=== PATIENT | female | born 2000 | race Caucasian/White ===

== ENCOUNTER 2021-02-17 13:53 | Emergency (ER) | payer OTHER, SELFPAY ==
--- NOTE | 2021-02-17 14:03 | ED.GENADULT ---
HPI - General Adult General Chief complaint: Dizziness Stated complaint: Light Headed Time Seen by Provider: 02/17/21 14:03 Source: patient and RN notes reviewed History of Present Illness HPI narrative: Patient is a 21-year-old female who presents the urgent care with complaints of intermittent dizziness/lightheadedness. Patient states that started approximately 1 week ago. She does follow-up with her PCP regularly due to being on Lexapro. Patient states she has had a lot of increase in stress and has had a very busy week with the next 2 weeks being very busy as well. 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 Denies of any upper respiratory complaints. Denies of any recent headaches. Denies of any vision changes. Currently denies of any dizziness or lightheadedness. Denies of any recent illness. Denies of any changes in medication, diet or exercise. No other acute complaints. No acute distress noted. Patient read plan of care. Some parts of this dictation were generated by voice recognition software and may contain typographical and/or grammatical inaccuracies. Related Data Home Medications Medication Instructions Recorded Confirmed escitalopram oxalate [Lexapro] 10 mg PO DAILY 02/17/21 02/17/21 Allergies Allergy/AdvReac Type Severity Reaction Status Date / Time No Known Allergies Allergy Verified 02/17/21 14:25 Review of Systems Review of Systems: CONSTITUTIONAL: Denies fever, chills, or sweats. EYES: Denies visual changes, redness, or discharge. ENT: Denies rhinorrhea, congestion, sore throat, or otalgia. CARDIOVASCULAR: Denies chest pain, palpitations, or edema. RESPIRATORY: Denies cough or dyspnea. GASTROINTESTINAL: Denies abdominal pain, nausea, vomiting, or diarrhea. GENITOURINARY: Denies dysuria or hematuria. SKIN: Denies rash or itching. MUSCULOSKELETAL: Denies back pain, joint pain, or myalgia. NEUROLOGIC: Reports of intermittent dizziness All other systems reviewed are negative, except as documented in HPI. PMFSH Comments At the time of my signature, I reviewed and agree with the nursing past medical, surgical, social, and family history. There is no relevant family history pertinent to the patient complaint. Exam Narrative: GENERAL: This is a well-nourished, well-developed patient, in no apparent distress. HEAD: normocephalic, atraumatic. EYES: PERRL. Sclera clear/white. Vision is grossly intact. EARS: External ears normal, auditory canals clear and without drainage, TMs normal without perforation. Hearing grossly intact. NOSE: External nose normal with no obvious nasal discharge, nares without redness, no rhinorrhea. THROAT: Mucous membranes moist, posterior pharynx clear. NECK: Neck supple CARDIOVASCULAR: Regular rate and rhythm without murmurs, gallops, or rubs. RESPIRATORY: Clear to auscultation. Breath sounds equal bilaterally. No wheezes, rales, or rhonchi. SKIN: warm, intact with no suspicious lesions or rash, good texture and turgor. NEURO: awake, alert, and oriented to person, place and time. There were no obvious focal neurologic abnormalities. No neuro deficits. EXTREMITIES: No clubbing, cyanosis, or edema. Course Vital Signs Vital signs: Vital Signs Temperature 97.8 F 02/17/21 14:05 Pulse Rate 78 02/17/21 14:05 Respiratory Rate 18 02/17/21 14:05 Blood Pressure 120/68 02/17/21 14:05 Pulse Oximetry 99 02/17/21 14:05 Temperature 97.8 F 02/17/21 14:05 Pulse Rate 78 02/17/21 14:05 Respiratory Rate 18 02/17/21 14:05 Blood Pressure 120/68 02/17/21 14:05 Pulse Oximetry 99 02/17/21 14:05 Some parts of this dictation were generated by voice recognition software and may contain typographical and/or grammatical inaccuracies. Medical Decision Making MDM Narrative Medical decision making narrative: Reviewed lab results with the patient. She is aware that urine analysis was not indicative of a urinary tract infection. Blood sugar level is within normal limi
[2021-02-17 14:05] VITALS: BP 120/68; PULSE 78; RESP 18; TEMP 36.6; O2SAT 99
[2021-02-17 14:26] LABS: Glucose Point of Care 166 mg/dl (65-105)
[2021-02-17 14:50] VITALS: BP 114/69; BP 116/63; PULSE 61; PULSE 74
[2021-02-17 14:55] VITALS: BP 92/60; PULSE 90
== END 2021-02-17 14:45 | disposition home or self-care (01) ==
PROVIDERS: Emergency Provider Nurse Practitioner Family
DX: R42 Dizziness and giddiness (principal); F41.9 Anxiety disorder, unspecified; F32.9 Major depressive disorder, single episode, unspecified
CPT/HCPCS: 81003; 82948; 99213; G0463

== ENCOUNTER 2021-07-02 11:19 | Emergency (ER) | payer OTHER, SELFPAY ==
[2021-07-02 11:25] VITALS: BP 111/63; PULSE 100; RESP 18; TEMP 37; O2SAT 99
--- NOTE | 2021-07-02 11:31 | ED.URI ---
HPI - URI/Sore Throat General Chief Complaint: Upper Respiratory Infection Stated Complaint: sore throat cough Time Seen by Provider: 07/02/21 11:31 Source: patient and RN notes reviewed History of Present Illness HPI Narrative: Patient is a 21-year-old female who presents the urgent care with complaints of cough and sore throat. Patient states that it started 2 weeks ago and she has been taking DayQuil, NyQuil and using cough drops. Denies any fever, nausea or vomiting. Denies any recent COVID exposures. Patient has been COVID vaccinated. No other acute complaints. No acute distress noted. Patient read the plan of care. Some parts of this dictation were generated by voice recognition software and may contain typographical and/or grammatical inaccuracies. Related Data Home Medications Medication Instructions Recorded Confirmed escitalopram oxalate 20 mg PO DAILY 07/02/21 07/02/21 medroxyprogesterone See Rx Instructions .ROUTE .COMPLEX 07/02/21 07/02/21 methylphenidate HCl 10 mg PO BID 07/02/21 07/02/21 Allergies Allergy/AdvReac Type Severity Reaction Status Date / Time No Known Allergies Allergy Verified 07/02/21 11:34 Review of Systems Review of Systems: CONSTITUTIONAL: Denies fever, chills, or sweats. EYES: Denies visual changes, redness, or discharge. ENT: Reports of sore throat CARDIOVASCULAR: Denies chest pain, palpitations, or edema. RESPIRATORY: Reports of nonproductive cough without dyspnea GASTROINTESTINAL: Denies abdominal pain, nausea, vomiting, or diarrhea. GENITOURINARY: Denies dysuria or hematuria. SKIN: Denies rash or itching. MUSCULOSKELETAL: Denies back pain, joint pain, or myalgia. NEUROLOGIC: Denies headache, numbness, or weakness. All other systems reviewed are negative, except as documented in HPI. PMFSH Comments At the time of my signature, I reviewed and agree with the nursing past medical, surgical, social, and family history. There is no relevant family history pertinent to the patient complaint. Exam Narrative: GENERAL: This is a well-nourished, well-developed patient, in no apparent distress. HEAD: normocephalic, atraumatic. EYES: PERRL. Sclera clear/white. Vision is grossly intact. EARS: External ears normal, auditory canals clear and without drainage, TMs normal without perforation. Hearing grossly intact. NOSE: External nose normal with no obvious nasal discharge, nares without redness, clear to yellow rhinorrhea. THROAT: Mucous membranes moist. Mild erythema noted posterior pharynx with moderate postnasal drainage NECK: Neck supple, non-tender without lymphadenopathy, masses or thyromegaly. CARDIOVASCULAR: Regular rate and rhythm without murmurs, gallops, or rubs. RESPIRATORY: Clear to auscultation. Breath sounds equal bilaterally. No wheezes, rales, or rhonchi. SKIN: warm, intact with no suspicious lesions or rash, good texture and turgor. NEURO: awake, alert, and oriented to person, place and time. There were no obvious focal neurologic abnormalities. EXTREMITIES: No clubbing, cyanosis, or edema. Course Course Level of Care: Express Care Visit Vital Signs Vital signs: Vital Signs Temperature 98.6 F 07/02/21 11:25 Pulse Rate 100 07/02/21 11:25 Respiratory Rate 18 07/02/21 11:25 Blood Pressure 111/63 07/02/21 11:25 Pulse Oximetry 99 07/02/21 11:25 Temperature 98.6 F 07/02/21 11:25 Pulse Rate 100 07/02/21 11:25 Respiratory Rate 18 07/02/21 11:25 Blood Pressure 111/63 07/02/21 11:25 Pulse Oximetry 99 07/02/21 11:25 Reviewed MDM - URI/Sore Throat MDM Narrative Medical decision making narrative: We will send a strep culture out and call you if an antibiotic is necessary. Culture takes approximately 72 hours. If you not hear back from the facility you may call the number In your paperwork to check on your culture results. Use Benadryl and Flonase prior to bedtime and complete oral steroid regimen as prescribed. May use Tylenol/ibuprofen
== END 2021-07-02 11:45 | disposition home or self-care (01) ==
PROVIDERS: Emergency Provider Nurse Practitioner Family
DX: J02.9 Acute pharyngitis, unspecified (principal); F90.9 Attention-deficit hyperactivity disorder, unspecified type; F41.9 Anxiety disorder, unspecified; F32.A Depression, unspecified
CPT/HCPCS: 87081; 99213; G0463

== ENCOUNTER 2021-07-17 12:19 | Emergency (ER) | payer OTHER, SELFPAY ==
[2021-07-17 12:22] VITALS: BP 122/68; PULSE 106; RESP 16; TEMP 37.6; O2SAT 100
--- NOTE | 2021-07-17 12:34 | ED.URI ---
HPI - URI/Sore Throat General Stated Complaint: Sore Throat/Chills Time Seen by Provider: 07/17/21 12:34 Mode of arrival: ambulatory Limitations: no limitations History of Present Illness HPI Narrative: Patient presented 2 weeks ago to this [facility] with same symptoms. No sore throat nasal congestion and body aches. Patient states she tested negative for COVID-19 and strep at that time. Patient states she was given prednisone and did feel much better after that. Patient states her symptoms returned last night. Patient has sore throat hurts to swallow no trouble swallowing and no drooling. Patient is fully vaccinated for COVID-19. Patient denies any shortness of breath no chest pain. Patient is take anything [id number] for her symptoms. MD elicited complaint: sore throat Related Data Home Medications Medication Instructions Recorded Confirmed escitalopram oxalate 20 mg PO DAILY 07/02/21 07/02/21 medroxyprogesterone See Rx Instructions .ROUTE .COMPLEX 07/02/21 07/02/21 methylphenidate HCl 10 mg PO BID 07/02/21 07/02/21 Allergies Allergy/AdvReac Type Severity Reaction Status Date / Time No Known Allergies Allergy Verified 07/02/21 11:34 Review of Systems Review of Systems: CONSTITUTIONAL: Denies chills, or sweats. Reports fever and generalized body aches EYES: Denies visual changes, redness, or discharge. ENT: Denies otalgia. Reports nasal congestion runny nose and sore throat CARDIOVASCULAR: Denies chest pain, palpitations, or edema. RESPIRATORY: Denies dyspnea. Reports occasional cough GASTROINTESTINAL: Denies abdominal pain, nausea, vomiting, or diarrhea. GENITOURINARY: Denies dysuria or hematuria. SKIN: Denies rash or itching. MUSCULOSKELETAL: Denies back pain, joint pain, or myalgia. Reports generalized body aches NEUROLOGIC: Denies headache, numbness, or weakness. PSYCHIATRIC: Denies anxiety or depression. PMFSH Comments At time of signature, agree with nursing past medical, surgical, social and family history. There is no relevant family history pertinent to the presenting complaint Exam Narrative: The patient is a well-developed, well-nourished in no acute distress. SKIN: Skin is warm and dry without erythema, swelling or exudate. There is good turgor. No tenting. HEAD: Atraumatic. Normocephalic. No temporal or scalp tenderness. EYES: Moist and bright. Sclera and conjunctivae normal. No discharge. PERRLA. Extraocular motions intact. Gross visual acuity intact. EARS: Pinna is normal shape and contour. Clear external auditory canals. TM pearly rajput with good cone of light, no erythema or suppuration. Bilateral cerumen noted no gross hearing deficit. NOSE: pink, moist mucosa with good air movement. Clear rhinorrhea without nasal flaring. Septum midline. Mouth: moist mucous membranes. THROAT; mild erythema noted to posterior oropharynx with moderate postnasal drainage. Without exudate or ulceration.. Uvula midline. Normal movement of soft palate. NECK: Supple and nontender with full range of motion without discomfort. No meningeal signs. LUNGS: Equal and bilateral breath sounds without wheezes, rales or rhonchi. CHEST: The chest wall is without retractions or use of accessory muscles. HEART: Has a regular rate and rhythm without murmur, gallops, click or rub. ABDOMEN: Soft, nontender with positive active bowel sounds. No rebound tenderness. EXTREMITIES: Without cyanosis, clubbing or edema. Equal 2+ distal pulses and 2 second capillary refill noted. NEUROLOGIC: alert, active, . The patient moves all extremities with normal muscle strength. Normal muscle tone is noted. Normal coordination is noted. NO focal neurological findings noted. Course Course Level of Care: Express Care Visit Vital Signs Vital signs: Vital Signs Temperature 37.6 C 07/17/21 12:22 Pulse Rate 106 H 07/17/21 12:22 Respiratory Rate 16 07/17/21 12:22 Blood Pressure 122/68 07/17/21 12:22 Pulse Oximetry 100 07/17/21 12
[2021-07-18 12:38] LABS: SARS-CoV-2 RNA PCR Negative
== END 2021-07-17 12:52 | disposition home or self-care (01) ==
PROVIDERS: Emergency Provider Nurse Practitioner Family
DX: J02.9 Acute pharyngitis, unspecified (principal); J06.9 Acute upper respiratory infection, unspecified; Z20.822 Contact with and (suspected) exposure to COVID-19; F41.9 Anxiety disorder, unspecified; F32.A Depression, unspecified; F90.9 Attention-deficit hyperactivity disorder, unspecified type
CPT/HCPCS: 87081; 99213; C9803; G0463; U0003; U0005